=== PATIENT | female | born 1980 | race Caucasian/White ===

== ENCOUNTER → 2018-06-10 | Day surgery (SDC) | payer BC ==
[~2018-06-10] MED LIST: LIDOCAINE HCL/EPINEPHRINE 1%-EPI 1:100,000 20 ML VIAL ONE; SODIUM BICARBONATE 4% (2.4MEQ) 5ML VIAL IV ONE
== END | disposition home or self-care (01) ==
LOC: RAD 09:32
PROVIDERS: ATTEND Family Medicine
DX: N60.02 Solitary cyst of left breast (principal); N60.12 Diffuse cystic mastopathy of left breast; N61.1 Abscess of the breast and nipple
CPT/HCPCS: 19083; 88305; A4648; J3490